=== PATIENT | female | born 1985 | race Caucasian/White ===

== ENCOUNTER 2018-02-04 09:20 | Emergency (ER) | payer OTHER ==
--- OUTSIDE RECORDS SUMMARY | 2018-02-04 09:24 | XMS REPORT | Clinical Summary ---
:1985 Author Organization [facility] Address [address] [place] [address] Care Team Providers Name Role Phone Ivette Clancy MD Primary Care Provider Allergies Not on File Medications Not on file Active Problems Not on file Encounters Date Type Specialty Care Team Description 01/23/2018 Hospital Encounter Radiology Mitra Jeronimo MD 01/19/2018 Hospital Encounter Radiology Mitra Jeronimo Pelvic pain in female 01/12/2018 Transcribe Orders Access Mitra Jeronimo Pelvic pain in female (Primary Dx) after 02/03/2017 Social History Tobacco Use Types Packs/Day Years Used Date Never Assessed Sex Assigned at Date Recorded Not on file Job Start Date Occupation Industry Not on file Not on file Not on file Travel History Travel Start Travel End No recent travel history available. Last Filed Vital Signs Not on file Plan of Treatment Health Maintenance Due Date Last Done Comments MMR VACCINES (1 of 1 - Standard 06/02/1987 series) VARICELLA VACCINES (1 of 2 - 2-dose 06/02/1999 adolescent series) CERVICAL CANCER SCREENING 06/02/2007 INFLUENZA VACCINE 10/19/2017 HEPATITIS B VACCINES Aged Out No longer eligible based on patient's age to complete this topic IPV VACCINES Aged Out No longer eligible based on patient's age to complete this topic MENINGOCOCCAL VACCINE Aged Out No longer eligible based on patient's age to complete this topic Procedures Procedure Name Priority Date/Time Associated Diagnosis Comments MRI PELVIS W WO Routine 01/23/2018 12:50 PM Pelvic pain in Results for this CONTRAST NATURAL SCIENCES MANAGER female procedure are in the results section. after 02/03/2017 Results MRI Pelvis W Wo Contrast (01/23/2018 12:50 PM NATURAL SCIENCES MANAGER) Narrative Performed At EXAMINATION:MRI PELVIS W WO CONTRAST [facility] CLINICAL HISTORY:R10.2 Pelvic and perineal pain, Pelvic painneg HCG mfg assoc COMPARISON:None. TECHNIQUE: MR of the pelvis with and without intravenous gadolinium. FINDINGS: Retroverted uterus measures 6.5 x 4.4 x 4.6 cm. No myometrial mass is seen. Endometrial stripe measures 5 mm. Unremarkable junctional zone. There are clustered nabothian cysts in the cervix. Unremarkable ovaries. No adnexal mass. Small free fluid is likely physiologic. No pelvic lymphadenopathy. Bladder is nondistended. Urethra is grossly normal. Mild posterior disc bulge at L5-S1. IMPRESSION: No suspicious or acute findings. [facility]-[id number] Procedure Note Interface, Radiology Results Incoming - 01/23/2018 1:29 PM NATURAL SCIENCES MANAGER EXAMINATION: MRI PELVIS W WO CONTRAST CLINICAL HISTORY: R10.2 Pelvic and perineal pain, Pelvic pain neg HCG mfg assoc COMPARISON: None. TECHNIQUE: MR of the pelvis with and without intravenous gadolinium. FINDINGS: Retroverted uterus measures 6.5 x 4.4 x 4.6 cm. No myometrial mass is seen. Endometrial stripe measures 5 mm. Unremarkable junctional zone. There are clustered nabothian cysts in the cervix. Unremarkable ovaries. No adnexal mass. Small free fluid is likely physiologic. No pelvic lymphadenopathy. Bladder is nondistended. Urethra is grossly normal. Mild posterior disc bulge at L5-S1. IMPRESSION: No suspicious or acute findings. [facility]-[id number] Performing Organization Address City/State/Zipcode Phone Number [facility] [address] [place] [address] after 02/03/2017 Insurance Payer Benefit Plan / Group Subscriber ID Type Phone Address Oscar [facility] xxxxxxxxx O Advance Directives Patient has advance care planning documents on file. For more information, please contact:Baron [address] [address]
[2018-02-04] MEDS ORDERED: KETOROLAC 30 MG/ML INJ ONE (10:24)
[2018-02-04] MEDS ORDERED: NA CHLORIDE 0.9% 1,000 ML ONE (10:24)
--- NOTE | 2018-02-04 11:05 | RAD REPORT ---
EXAM DESCRIPTION: CT - Stone Protocol - 02/04/2018 10:56 am CLINICAL HISTORY: Flank pain. FLANK PAIN COMPARISON: No comparisons TECHNIQUE: Axial images were obtained without oral or IV contrast. Lack of contrast limits solid org an and vascular assessment. The [id number] spans the entirety of the system partially obscuring uppermost abdomen and lung bases. Coronal reformatted images were obtained and reviewed. All CT scans are performed using dose optimization technique as appropriate and may include automated exposure control or mA/KV adjustment according to patient size. FINDINGS: The lower lung ricci are clear. Imaged portions of the liver and spleen show no suspicious findings on non-contrast imaging. The panc reas and adrenal glands are normal. No pathologic lymphadenopathy in the abdomen or pelvis. No urinary tract stones or obstructive uropathy. No bowel obstruction, free air, free fluid or abscess. Normal appendix noted.Prominent fecal retentio n in the colon. No significant bony abnormality. 2.4 cm right ovarian follicle. IMPRESSION: No urinary tract stones or obstructive uropathy. Prominent fecal retention in the colon.
[2018-02-04 11:15] LABS: ALT/SGPT 21 U/L (12-78); AST/SGOT 22 U/L (15-37); Albumin 3.6 g/dL (3.4-5.0); Alkaline Phosphatase 81 U/L (45-117); BUN Blood Urea Nitrogen 9 mg/dL (7-18); Bicarbonate 28 mmol/L (21-32); Bilirubin Direct < 0.1 mg/dL (0-0.2); Bilirubin Total 0.2 mg/dL (0.2-1.0); Glucose Level 92 mg/dL (74-106); Lipase 151 U/L (73-393); Potassium 4.2 mmol/L (3.5-5.1); Protein, Total 6.9 g/dL (6.4-8.2); Sodium Level 143 mmol/L (136-145)
[2018-02-04 11:24] LABS: Absolute Lymphocytes (CBC) 2.1 K/uL (0.7-4.9); Absolute Monocytes 0.6 K/uL (0.1-1.3); Absolute Neutrophil 6.6 K/uL (1.8-8.0); Basophils % 0.7 % (0-1.3); Eosinophils % 2.7 % (0-4.4); Hematocrit 34.6 % (36.0-45.0); Lymphocytes % 21.4 % (15.3-44.8); MCH 32.2 pg (27.0-35.0); MCV 90.4 fL (80-100); MPV 8.7 fL (7.6-11.3); Monocytes % 6.2 % (3.3-12.3); RBC Red Blood Cell Count 3.83 M/uL (3.86-4.86)
[2018-02-04 11:38] LABS: Blood Morphology Comment NOT SEEN (NOT SEEN); Platelet Estimate ADEQ; Urine White Blood Cell Casts OK
--- NOTE | 2018-02-04 11:59 | ER ---
Nurse's Notes [facility] Name: Nadira Lentz Age: 32 yrs Sex: Female : 1985 Arrival Date: 02/04/2018 Time: 09:26 Bed 14 Private MD: None, None Diagnosis: Constipation;Unspecified abdominal pain Presentation: 02/04 09:39 Presenting complaint: Patient states: from [facility] for in patient tx of meth use; hj pt states, "when i woke up this morning, i felt pain on my legs and pain on my R flank area that moves to the R lower abd and to my private part; reports N/V; states hx of kidney stones, hxz of R ovarian csyt; denies fever and chills; pain is 7/10;. Transition of care: patient was received from another setting of care (rehabilitation facility). Onset of symptoms was February 04, 2018. Risk Assessment: Do you want to hurt yourself or someone else? Patient reports no desire to harm self or others. Initial Sepsis Screen: Does the patient meet any 2 criteria? No. Patient's initial sepsis screen is negative. Does the patient have a suspected source of infection? No. Patient's initial sepsis screen is negative. Care prior to arrival: None. 09:39 Method Of Arrival: Ambulatory 09:39 Acuity: NAE 3 Triage Assessment: 09:44 General: Appears in no apparent distress. uncomfortable, Behavior is calm, cooperative, hj appropriate for age. Pain: Complains of pain in R flank, R lower abdomen. 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 - Social history:: Smoking status: Patient uses tobacco products, Patient uses IV drugs, amphetamines. - Ebola Screening: : Patient negative for fever greater than or equal to 101.5 degrees Fahrenheit, and additional compatible Ebola Virus Disease symptoms Patient denies exposure to infectious person Patient denies travel to an Ebola-affected area in the 21 days before illness onset. Screenin:44 Abuse screen: Denies threats or abuse. Denies injuries from another. Nutritional hj screening: No deficits noted. Tuberculosis screening: No symptoms or risk factors identified. Fall Risk None identified. Assessment: 09:45 General: Appears in no apparent distress. uncomfortable, slender, Behavior is calm, hj cooperative, appropriate for age. Pain: Complains of pain in R flank, R lower abdomen. Neuro: Level of Consciousness is awake, alert, obeys commands, Oriented to person, place, time, situation, Appropriate for age. Cardiovascular: Capillary refill < 3 seconds Patient's skin is warm and dry. Respiratory: Airway is patent Respiratory effort is even, unlabored, Respiratory pattern is regular, symmetrical. GI: Reports lower abdominal pain, nausea. : No signs and/or symptoms were reported regarding the genitourinary system. EENT: No signs and/or symptoms were reported regarding the EENT system. Derm: No signs and/or symptoms reported regarding the dermatologic system. Musculoskeletal: No signs and/or symptoms reported regarding the musculoskeletal system. 10:39 Reassessment: lab called for re collect; relayed to Dominic of lab, recollect assistance from phlebotomy;. 12:10 Reassessment: provider in room for POC:. Vital Signs: 09:45 BP 117 / 72; Pulse 99; Resp 18; Temp 98.0(O); Pulse Ox 100% on R/A; Weight 60.78 kg; hj Height 5 ft. 2 in. (157.48 cm); Pain 7/10; 10:22 BP 108 / 74; Pulse 68; Resp 18; Pulse Ox 100% on R/A; hj 12:19 BP 110 / 75; Pulse 70; Resp 18; Pulse Ox 100% on R/A; hj 09:45 Body Mass Index 24.51 (60.78 kg, 157.48 cm) ED Course: 09:26 Patient arrived in ED. sb2 09:26 None, None is Private Physician. sb2 09:30 Carlos Pederson NP is PHCP. pm1 09:30 Chapin Cole MD is Attending Physician. pm1 09:38 Bin Camarillo, FARHAD is Primary Nurse. hj 09:42 Triage completed. hj 09:45 Arm band placed on right wrist. hj 09:45 Patient has correct armband on for positive identification. Placed in gown. Bed in low hj position. Call light in reach. Side rails up X 1. 09:56 Radiology exam delayed due to test not completed at this time. vr 10:15 Initial lab(s) drawn, by me, sent to lab. Inserted saline lock: 24 gauge in left hand, hj using aseptic technique. Blood collected. 10:55 CT Stone Protocol: Right flank pain In Process Unspecified. EDMS 12:18 No provider procedures requiring assistance completed. IV discontinued, intact, hj bleeding controlled, No redness/swelling at site. Pressure dressing applied. Administered Medications: 10:15 Drug: NS 0.9% 1000 ml Route: IV; Rate: 1000 ml; Site: left hand; hj 12:00 Follow up: IV Status: Completed infusion; IV Intake: 1000ml hj 10:47 Drug: TORadol 30 mg Route: IVP; Site: left hand; hj 10:47 Follow up: Response: No adverse reaction hj Intake: 12:00 IV: 1000ml; Total: 1000ml. hj Outcome: 11:58 Discharge ordered by MD. pm1 12:18 Discharged to to wait for ride in the lobby; hj 12:18 Condition: stable 12:18 Discharge instructions given to patient, Instructed on discharge instructions, follow up and referral plans. medication usage, Demonstrated understanding of instructions, follow-up care, medications, Prescriptions given X 1. 12:20 Patient left the ED. hj Signatures: Dispatcher [employer] Brandi Jose vr Bin Camarillo RN RN hj Carlos Pederson NP LEAD JAVA SOFTWARE ENGINEER pm1 Laura Rajan sb2
--- NOTE | 2018-02-04 11:59 | EDPHYS ---
Physician Documentation [facility] Name: Nadira Lentz Age: 32 yrs Sex: Female : 1985 Arrival Date: 02/04/2018 Time: 09:26 Bed 14 Private MD: None, None ED Physician Chapin Cole HPI: 02/04 10:01 This 32 yrs old Female presents to ER via Ambulatory with complaints of Flank Pain, pm1 Pain With Urination, Leg Pain. 10:01 The patient complains of pain in the right low back. The pain radiates to the right pm1 lower quadrant. Onset: The symptoms/episode began/occurred 3 week(s) ago. Modifying factors: The symptoms are alleviated by nothing. the symptoms are aggravated by lying down flat. Associated signs and symptoms: Pertinent positives: nausea, Pertinent negatives: diarrhea, dysuria, fever, urinary frequency, headache, vomiting. Severity of pain: in the emergency department the pain is actually worse. The patient has experienced similar episodes in the past, a few times, today's symptoms are similar, to previous ruptured ovarian cyst. The patient has been recently seen by a physician: with similar presenting complaints, and apparently given a diagnosis of ruptured right ovarian cyst. Patient reports onset of right flank pain 3 weeks ago. Was diagnosed with right ovarian cyst rupture. Patient was seeing branch administrator for cyst, but she reports that she ended management of her ruptured cyst prematurely for an opening at the drug rehabilitation center. Patient abusing methaphetamine. 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 - Social history:: Smoking status: Patient uses tobacco products, Patient uses IV drugs, amphetamines. - Ebola Screening: : Patient negative for fever greater than or equal to 101.5 degrees Fahrenheit, and additional compatible Ebola Virus Disease symptoms Patient denies exposure to infectious person Patient denies travel to an Ebola-affected area in the 21 days before illness onset. ROS: 10:02 Constitutional: Negative for fever, chills, and weight loss, Eyes: Negative for injury, pm1 pain, redness, and discharge, ENT: Negative for injury, pain, and discharge, Neck: Negative for injury, pain, and swelling, Cardiovascular: Negative for chest pain, palpitations, and edema, Respiratory: Negative for shortness of breath, cough, wheezing, and pleuritic chest pain. 10:02 : Negative for injury, bleeding, discharge, and swelling, MS/Extremity: Negative for injury and deformity, Skin: Negative for injury, rash, and discoloration, Neuro: Negative for headache, weakness, numbness, tingling, and seizure. 10:02 Abdomen/GI: 10:02 Abdomen/GI: Positive for abdominal pain, nausea, Negative for vomiting, diarrhea. 10:02 Back: Positive for flank pain, on the right, Negative for decreased range of motion. Exam: 10:02 Constitutional: This is a well developed, well nourished patient who is awake, alert, pm1 and in no acute distress. Head/Face: Normocephalic, atraumatic. Eyes: Pupils equal round and reactive to light, extra-ocular motions intact. Lids and lashes normal. Conjunctiva and sclera are non-icteric and not injected. Cornea within normal limits. Periorbital areas with no swelling, redness, or edema. ENT: Nares patent. No nasal discharge, no septal abnormalities noted. Tympanic membranes are normal and external auditory canals are clear. Oropharynx with no redness, swelling, or masses, exudates, or evidence of obstruction, uvula midline. Mucous membranes moist. Neck: Trachea midline, no thyromegaly or masses palpated, and no cervical lymphadenopathy. Supple, full range of motion without nuchal rigidity, or vertebral point tenderness. No Meningismus. Chest/axilla: Normal chest wall appearance and motion. Nontender with no deformity. No lesions are appreciated. Cardiovascular: Regular rate and rhythm with a normal S1 and S2. No gallops, murmurs, or rubs. Normal PMI, no JVD. No pulse deficits. Respiratory: Lungs have equal breath sounds bilaterally, clear to auscultation and percussion. No rales, rhonchi or wheezes noted. No increased work of breathing, no retractions or nasal flaring. Abdomen/GI: Soft, non-tender, with normal bowel sounds. No distension or tympany. No guarding or rebound. No evidence of tenderness throughout. 10:02 Skin: Warm, dry with normal turgor. Normal color with no rashes, no lesions, and no evidence of cellulitis. MS/ Extremity: Pulses equal, no cyanosis. Neurovascular intact. Full, normal range of motion. 10:02 Back: pain, of the right low back, normal spinal alignment noted. 10:02 Neuro: Orientation: is normal, Motor: is normal, moves all fours, Sensation: is normal, no obvious gross deficits. Vital Signs: 09:45 BP 117 / 72; Pulse 99; Resp 18; Temp 98.0(O); Pulse Ox 100% on R/A; Weight 60.78 kg; hj Height 5 ft. 2 in. (157.48 cm); Pain 7/10; 10:22 BP 108 / 74; Pulse 68; Resp 18; Pulse Ox 100% on R/A; hj 12:19 BP 110 / 75; Pulse 70; Resp 18; Pulse Ox 100% on R/A; hj 09:45 Body Mass Index 24.51 (60.78 kg, 157.48 cm) hj MDM: 09:47 Patient medically screened. pm1 11:57 Data reviewed: vital signs. Data interpreted: Pulse oximetry: on room air is 100 %. pm1 Interpretation: normal. Counseling: I had a detailed discussion with the patient and/or guardian regarding: the historical points, exam findings, and any diagnostic results supporting the discharge/admit diagnosis, lab results, radiology results, the need for outpatient follow up, to return to the emergency department if symptoms worsen or persist or if there are any questions or concerns that arise at home. 02/04 09:47 Order name: Basic Metabolic Panel; Complete Time: 11:49 pm1 02/04 09:47 Order name: CBC with Diff; Complete Time: 11:49 pm1 02/04 09:47 Order name: Creatinine for Radiology; Complete Time: 11:49 pm1 02/04 09:47 Order name: Hepatic Function; Complete Time: 11:49 pm1 02/04 09:47 Order name: Lipase; Complete Time: 11:49 pm1 02/04 09:47 Order name: IV Saline Lock; Complete Time: 10:15 pm1 02/04 09:47 Order name: Labs collected and sent; Complete Time: 10:15 pm1 02/04 09:50 Order name: CT Stone Protocol: Right flank pain; Complete Time: 11:07 pm1 02/04 09:50 Order name: Urine Dipstick-Ancillary (obtain specimen); Complete Time: 10:47 pm1 02/04 11:34 Order name: CBC Smear Scan; Complete Time: 11:49 EDDE 02/04 09:50 Order name: Urine Test (obtain specimen); Complete Time: 10:47 pm1 02/04 10:35 Order name: Labs - recollect needed; Complete Time: 10:38 eb Administered Medications: 10:15 Drug: NS 0.9% 1000 ml Route: IV; Rate: 1000 ml; Site: left hand; 12:00 Follow up: IV Status: Completed infusion; IV Intake: 1000ml 10:47 Drug: TORadol 30 mg Route: IVP; Site: left hand; 10:47 Follow up: Response: No adverse reaction Disposition: 02/05 09:52 Co-signature as Attending Physician, Chapin Cole MD. Disposition: 02/04/18 11:58 Discharged to Home. Impression: Constipation, Unspecified abdominal pain. - Condition is Stable. - Discharge Instructions: Abdominal Pain, Adult, Constipation, Adult. - Prescriptions for Miralax 17 gram/dose Oral - take 1 packet by ORAL route once daily As needed dilute powder in 8 ounces of water or juice; 7 packet. - Medication Reconciliation Form, Thank You Letter form. - Follow up: Emergency Department; When: As needed; Reason: Worsening of condition. Follow up: Private Physician; When: 2 - 3 days; Reason: Recheck today's complaints, Continuance of care, Re-evaluation by your physician. - Problem is new. - Symptoms have improved. Signatures: Dispatcher [employer] [facility] Bin Camarillo RN RN hj Carlos Pederson, BALL MILL OPERATOR BALL MILL OPERATOR pm1 Chapin Cole MD MD Cande Baker Corrections: (The following items were deleted from the chart) 02/04 12:00 11:58 02/04/2018 11:58 Discharged to Home. Impression: Unspecified ovarian cysts - pm1 right. Condition is Stable. Forms are Medication Reconciliation Form, Thank You Letter, Antibiotic Education, Prescription Opioid Use. Follow up: Emergency Department; When: As needed; Reason: Worsening of condition. Follow up: Private Physician; When: 2 - 3 days; Reason: Recheck today's complaints, Continuance of care, Re-evaluation by your physician. Problem is new. Symptoms have improved. pm1 12:20 12:00 02/04/2018 11:58 Discharged to Home. Impression: Constipation; Unspecified hj abdominal pain. Condition is Stable. Discharge Instructions: Ovarian Cyst, Ovarian Cyst, [id number]. Forms are Medication Reconciliation Form, Thank You Letter. Follow up: Emergency Department; When: As needed; Reason: Worsening of condition. Follow up: Private Physician; When: 2 - 3 days; Reason: Recheck today's complaints, Continuance of care, Re-evaluation by your physician. Problem is new. Symptoms have improved. pm1
== END 2018-02-04 12:20 | disposition home or self-care (01) ==
LOC: ER 09:20
DX: K59.00 Constipation, unspecified (principal); F32.9 Major depressive disorder, single episode, unspecified; F31.9 Bipolar disorder, unspecified; Z72.0 Tobacco use; Z88.0 Allergy status to penicillin; Z98.82 Breast implant status
CPT/HCPCS: 36415; 74176; 76377; 80048; 80076; 83690; 85025; 96361; 96374; 99284; J7030